=== PATIENT | female | born 1990 | race Caucasian/White ===

== ENCOUNTER → 2020-04-29 | Outpatient (CLI) | payer OTHER ==
--- NOTE | 2020-05-24 13:45 | SLEEPHOME ---
DATE: 04/29/2020 ORDERED BY: YOSEF Rocha Diagnostic home sleep testing was performed due to concern for the obstructive sleep apnea syndrome. For testing, a nocturnal T3 respiratory monitoring device was used. Continuous record was made of pulse, oxygen saturation, air flow, chest and abdominal strain, and body position. Nine hours and 59 minutes of data were reviewed. There were nine hours and 14 minutes marked as time in bed. During the internal marked time in bed, there were 103 respiratory events identified of ten seconds in duration or greater for a respiratory event index of 11.2. The events were more frequently obstructive, however 41 mixed and central apneas were also seen. Baseline pulse rate 72 beats per minute. Pulse rate range 59-92. Baseline saturation 92%. Saturations failed 87%. The test was performed in non-supine positions. IMPRESSION: Abnormal home sleep testing with repetitive respiratory events and oxygen desaturations to 87% with a respiratory event index of 11.2 is consistent with the obstructive sleep apnea syndrome. RECOMMENDATION: The patient should be encouraged to undergo a formal sleep evaluation. MEGAN
== END ==
LOC: M SLEEP 10:00 → M SLEEP HO 10:00
PROVIDERS: ATTEND Nurse Practitioner Family
DX: R06.83 Snoring (principal)

== ENCOUNTER → 2021-08-15 | Outpatient (CLI) | payer OTHER ==
--- NOTE | 2021-08-18 19:34 | SLEEPHOME ---
DATE: 08/15/2021 ORDERED BY: CHIQUI Rocha Diagnostic home sleep testing was performed due to concern for the obstructive sleep apnea syndrome in this patient with excessive somnolence and nonrestorative sleep. For testing, a [employer] T3 respiratory monitoring device was used. Continuous record was made of pulse, oxygen saturation, air flow, chest and abdominal strain, and body position. Nine hours and 59 minutes of data were reviewed. There were 7 hours and 1 minute marked as time in bed. During the interval marked time in bed, there were 59 respiratory events identified of 10 seconds in duration or greater for a respiratory event index of 8.4. The events were mostly obstructive. However, 21 mixed and central apneas were also seen. Baseline pulse rate was 54 beats per minute. Pulse rate ranged 43 to 87. Baseline saturation was 95%. Saturations fell to 83% and testing was performed in both the supine and nonsupine positions. IMPRESSION: Abnormal home sleep testing with repetitive respiratory events and oxygen desaturations to 83% with a respiratory event index of 8.4 is consistent with the obstructive sleep apnea syndrome. RECOMMENDATION: The patient should be encouraged to undergo a formal sleep evaluation. cc: Geetha Man MD
== END ==
LOC: M SLEEP HO 15:08
PROVIDERS: ATTEND Nurse Practitioner Family
DX: G47.33 Obstructive sleep apnea (adult) (pediatric) (principal)

== ENCOUNTER 2024-05-17 12:12 | Emergency (ER) | payer OTHER, SELFPAY ==
[~2024-05-17] VITALS: Ht 175.3 cm; Wt 96.8 kg
[2024-05-17 12:13] VITALS: BP 134/74; TEMP 96.8; O2SAT 98
[2024-05-17] MEDS ORDERED: IBUP200T46 PO (12:26)
[2024-05-17] MEDS ORDERED: AMOX875T (12:28)
== END 2024-05-17 14:52 | disposition home or self-care (01) ==
LOC: M ED 12:12
DX: T16.1XXA Foreign body in right ear, initial encounter (principal); Z79.2 Long term (current) use of antibiotics; Z79.1 Long term (current) use of non-steroidal anti-inflammatories (NSAID); Z88.2 Allergy status to sulfonamides; Z88.8 Allergy status to other drugs, medicaments and biological substances; Z91.048 Other nonmedicinal substance allergy status